=== PATIENT | male | born 1955 | race Caucasian/White ===

== ENCOUNTER → 2016-10-19 | Outpatient (CLI) | payer BC ==
--- NOTE | 2016-10-19 15:30 | RADIOLOGY REPORT PS360 ---
EXAM: CT LUNG LOW DOSE WO CONTRAST COMPARISON: None HISTORY: 60-year-old male with greater than 30 pack-year smoking history asymptomatic, follow-up abnormal LDCT on 04/06/2016 ORDERING PHYSICIAN: Trinh Horn MD PATIENT AGE: 60 years TECHNIQUE: The exam was performed on a GE Light Speed [address] scanner using 2.96 mGy CTDI. A low dose helical CT CHEST was performed on a multi-detector scanner The LDCT was performed in a facility that meets the criteria for the screening program. Data regarding this exam was submitted to [employer] which is an approved registry. The order for this exam indicates that it came as a result of a lung cancer screening counseling shard decision-making visit that included all the elements required of such a visit including smoking cessation. The radiologist interpreting this exam meets the [facility] criteria for the LDCT lung cancer screening program. The exam is reported using the Lung-RADS classification scale and reported to the [employer] registry. NOTE: This study was performed for the specific purposes of lung cancer screening and is not an alternative to diagnostic chest CT. RADIATION DOSE: CTDI vol(CT dose Index-volume) = 2.96mG DLP (Dose Length Product) = 121.70 mGcm FINDINGS: 3 mm noncalcified nodule in the central aspect of the right upper lobe once again made.. A 2 mm nodular opacity is present in the right upper lobe anteriorly not readily apparent on the previous exam. The previously noted tree-in-bud pattern in the right lower lobe has improved. There is a somewhat irregular 4 mm nodular opacity in the middle aspect of the right lower lobe less apparent.. A 3 mm nodule present in the right lower lobe medially not readily apparent on the previous exam. Centrilobular emphysematous changes are once again noted with mild prominence of the tracheobronchial tree. No mediastinal or hilar mass evident. Coronary artery calcifications are present. IMPRESSION: 1. Lung RADS Category: 2, benign 2. Other findings: Emphysema RECOMMENDATIONS: [id number] LDCT screen
== END ==
LOC: RAD 13:59
DX: Z87.891 Personal history of nicotine dependence (principal); Z12.2 Encounter for screening for malignant neoplasm of respiratory organs
CPT/HCPCS: G0297

== ENCOUNTER → 2017-05-03 | Outpatient (CLI) | payer BC ==
[2017-05-03 11:42] LABS: BUN 29 mg/dL (7-18); PROSTATE-SPECIFIC AG SCREEEN 0.4 ng/mL (0.0-4.0)
[2017-05-03 11:44] LABS: GFR (ESTIMATED) 56 ML/MIN (>60)
[2017-05-03 12:42] LABS: HEMOGLOBIN 13.9 g/dL (14.1-18.0)
[2017-05-03 12:44] LABS: LYMPH # 1.4 K/mm3 (0.7-4.5); LYMPH % 15.8 % (10-50)
== END ==
LOC: LAB 08:38 → RT 08:38
PROVIDERS: Family Medicine
DX: I10 Essential (primary) hypertension (principal); E78.5 Hyperlipidemia, unspecified; R63.4 Abnormal weight loss; Z00.00 Encounter for general adult medical examination without abnormal findings
CPT/HCPCS: G0103